=== PATIENT | female | born 1990 | race American Indian/Alaskan Native ===

== ENCOUNTER 2019-10-12 06:17 | Emergency (ER) | payer OTHER ==
[2019-10-12] MEDS ORDERED: ACETAMINOPHEN 325 MG TAB PO ONE (08:26)
--- NOTE | 2019-10-12 08:31 | Emergency Department Report ---
ED Lower Extremity HPI - General Chief Complaint: Extremity Injury, Lower Stated Complaint: RT ANKLE PAIN Time Seen by Provider: 10/12/19 08:16 Source: patient Mode of arrival: Ambulatory Limitations: No Limitations - History of Present Illness Initial Comments: This is a 29-year-old female complaining of right posterior ankle pain 2 days. Patient denies any known falls or injury. Patient is 21 weeks she denies any abdominal pain any spotting patient states she is not here in addition to her only that she is having worsening right ankle pain. 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 -: days(s) (1) Injury: Ankle: Right (posterior ankle no injury or fall) Type of Injury: unknown Place: home Severity: moderate Improves With: nothing Worsens With: movement Associated Symptoms: able to partially bear weight - Related Data Allergies Allergy/AdvReac Type Severity Reaction Status Date / Time latex Allergy Itching Verified 10/12/19 06:21 ED Review of Systems ROS: Stated complaint: RT ANKLE PAIN Other details as noted in HPI Comment: All other systems reviewed and negative Constitutional: denies: chills, fever ENT: denies: throat pain Respiratory: denies: cough Cardiovascular: denies: chest pain Gastrointestinal: denies: abdominal pain, nausea ED Past Medical Hx - Past Medical History Previous Medical History?: No - Surgical History Past Surgical History?: No - Social History Smoking Status: Never Smoker ED Physical Exam - General Limitations: No Limitations General appearance: alert, in no apparent distress - Head Head exam: Present: atraumatic - Eye Eye exam: Present: normal appearance - ENT ENT exam: Present: normal exam - Neck Neck exam: Present: normal inspection - Respiratory Respiratory exam: Present: normal lung sounds bilaterally - Cardiovascular Cardiovascular Exam: Present: regular rate - GI/Abdominal GI/Abdominal exam: Present: soft. Absent: tenderness - Extremities Exam Extremities exam: Present: tenderness (rigth posterior ankle tenderness, no swelling no deformity to right ankle pain worsens with flexion only. 2+ dp pulse sensation intact. ). Absent: pedal edema, joint swelling - Neurological Exam Neurological exam: Present: alert, oriented X3 - Psychiatric Psychiatric exam: Present: normal affect - Skin Skin exam: Present: warm, dry, intact, normal color. Absent: rash ED Course Vital Signs 10/12/19 06:20 Temperature 98.7 F Pulse Rate 85 Respiratory 18 Rate Blood Pressure 121/63 O2 Sat by Pulse 100 Oximetry ED Lower Extremity MDM - Radiology Data Radiology results: report reviewed right ankle xray FINDINGS: The joint space is maintained. There is no fracture or dislocation. No spurring or arthritic change. No bone lesion or periostitis. No significant abnormality. IMPRESSION: Negative study - Medical Decision Making 29 yo female with 2 day hx of right ankle pain. No known falls or trauma. Pt is 21 weeks but has no complaint related to her Xray right ankle negative study Ankle stirrup for support RICE instructions and follow up with PCP Critical Care Time: No Critical care attestation.: If time is entered above; I have spent that time in minutes in the direct care of this critically ill patient, excluding procedure time. ED Disposition Clinical Impression: Right ankle strain Qualifiers: Encounter type: initial encounter Qualified Code(s): S96.911A - Strain of unspecified muscle and tendon at ankle and foot level, right foot, initial encounter Disposition: - TO HOME OR SELFCARE Is pt being admited?: No Does the pt Need Aspirin: No Condition: Stable Instructions: Ankle Exercises (GEN), Ankle Sprain (ED), Ankle Stirrup Splint (ED) Additional Instructions: Rest ice and elevate X 3 DAYS. Wear ankle stirrup while walking for at least 7 to 10 days. Follow up with with your primary care physician. Okay to take Tylenol as directed by package insert cv azfor pain. Referrals: [facility] [Other] - 3-5 Days Time of Disposition: 09:46
--- NOTE | 2019-10-12 09:18 | XRay Report ---
Right ankle, 3 views INDICATION: Nontraumatic ankle pain today FINDINGS: The joint space is maintained. There is no fracture or dislocation. No spurring or arthriti c change. No bone lesion or periostitis. No significant abnormality. IMPRESSION: Negative study Signer Name: Richard Lopez MD Signed: 10/12/2019 9:14 AM Workstation Name: [id number]
[2019-10-12 09:57] VITALS: BP 120/70
== END 2019-10-12 09:56 | disposition home or self-care (01) ==
LOC: ED 06:17
DX: O9A.212 Injury, poisoning and certain other consequences of external causes complicating pregnancy, second trimester (principal); S96.911A Strain of unspecified muscle and tendon at ankle and foot level, right foot, initial encounter; Z3A.21 21 weeks gestation of pregnancy; X58.XXXA Exposure to other specified factors, initial encounter; Y93.89 Activity, other specified; Y92.89 Other specified places as the place of occurrence of the external cause; Y99.8 Other external cause status
CPT/HCPCS: 99283